=== PATIENT | female | born 1995 | race Two or more races ===

== ENCOUNTER 2019-02-04 10:11 | Observation (INO) | payer MEDICAID, OTHER ==
[2019-02-04] MEDS ORDERED: PREN-153 OR (10:58)
[2019-02-04 11:47] LABS: Alcohol, Urine < 3.0 mg/dL (0-5); Amphetamine Screen, Urine NEGATIVE (NEGATIVE); Barbiturate Scree,Urine NEGATIVE (NEGATIVE); Benzodiazephine Screen, Urine NEGATIVE (NEGATIVE); Cannabinoid Screen, Urine NEGATIVE (NEGATIVE); Cocaine Screen, Urine NEGATIVE (NEGATIVE); Opiate Scree,Urine NEGATIVE (NEGATIVE); Phencyclidine Screen, Urine NEGATIVE (NEGATIVE)
== END 2019-02-04 12:45 | disposition home or self-care (01) | DRG 566 ==
LOC: LDRP 10:11
PROVIDERS: ADMIT Specialist; ATTEND Specialist
DX: O26.892 Other specified pregnancy related conditions, second trimester (principal); R10.9 Unspecified abdominal pain; R11.0 Nausea; Z3A.24 24 weeks gestation of pregnancy
CPT/HCPCS: 59025; 76815; 80307; 81002; G0378